=== PATIENT | female | born 1930 | race Asian ===

== ENCOUNTER 2016-06-07 11:23 | Outpatient (CLI) | payer OTHER ==
[~2016-06-07 11:23] MED LIST: ACID REDUCER150 MG OR; ALEVE220 MG OR; CIPRO500 MG OR; CLOP75TA2 PO; EQ ASPIRIN325 MG OR; GABA300C2 PO; LISITAB PO; MACROBID100 MG OR; MELO-13 PO; METF500T PO; PROMETHAZINE25 MG OR; VIT B12 ER1000 MCG OR; Z-PAK PO
[2016-06-07 11:58] LABS: PLATELET COUNT 255 K/uL (152-353)
[2016-06-07 12:12] LABS: POTASSIUM 3.4 mmol/L (3.6-5.2); SODIUM 131 mmol/L (136-145)
== END 2016-06-07 19:30 | disposition home or self-care (01) ==
LOC: LABW 11:23
PROVIDERS: Internal Medicine
DX: E11.9 Type 2 diabetes mellitus without complications (principal)
CPT/HCPCS: 36415; 80053; 80061; 81000; 82043; 82570; 83036; 84439; 84443; 85027

== ENCOUNTER 2016-11-04 11:11 | Emergency (ER) | payer OTHER ==
[~2016-11-04] VITALS: Ht 175.3 cm; Wt 84.8 kg
[2016-11-04 11:29] VITALS: TEMP 98.9
[2016-11-04 11:47] LABS: PLATELET COUNT 293 K/uL (152-353)
[2016-11-04 12:10] LABS: POTASSIUM 3.7 mmol/L (3.6-5.2); SODIUM 133 mmol/L (136-145)
[2016-11-04 13:43] VITALS: BP 113/74
== END 2016-11-04 13:43 | disposition home or self-care (01) ==
LOC: ED 11:11
DX: K29.60 Other gastritis without bleeding (principal); B96.81 Helicobacter pylori [H. pylori] as the cause of diseases classified elsewhere; R10.13 Epigastric pain
CPT/HCPCS: 36415; 80053; 82550; 83880; 84484; 85027; 86318; 93005; 99283